=== PATIENT | male | born 1990 | race Two or more races ===

== ENCOUNTER 2020-07-25 09:33 | Emergency (ER) | payer OTHER ==
[~2020-07-25] VITALS: Ht 182.9 cm; Wt 72.6 kg
== END 2020-07-25 14:48 | disposition home or self-care (01) ==
LOC: ED 09:33
DX: S90.211A Contusion of right great toe with damage to nail, initial encounter (principal); W22.8XXA Striking against or struck by other objects, initial encounter; F17.200 Nicotine dependence, unspecified, uncomplicated
CPT/HCPCS: 73660; 99283-25